=== PATIENT | female | born 1985 | race Caucasian/White ===

== ENCOUNTER → 2022-01-04 16:54 | Outpatient (CLI) | payer OTHER, SELFPAY ==
--- NOTE | 2022-01-04 16:56 | DI.US.S_ITS ---
PROCEDURE: US PELVIC COMPLETE INDICATIONS: Breakthrough bleeding TECHNIQUE: Real-time scanning was performed of the pelvic organs, with image documentation. Additional endovaginal scanning was necessary due to incomplete visualization of the adnexal and endometrial structures by transabdominal scanning. COMPARISON: 04/08/2020 FINDINGS: Uterus: Uterus is anteverted measuring 8.7 x 4.2 x 5.1 cm. Endometrial stripe measures 3.2 mm, with heterogeneity. Small polyp is suspected in the mid region. Ovaries: Right ovary measures 5 x 1.3 x 3 cm. Left ovary measures 4.2 x 1.8 x 2.1 cm. Other: No pathologic free abdominal or pelvic fluid. IMPRESSION: Suspected mid endometrial small polyp. Otherwise normal pelvic ultrasound. We strive to produce accurate, complete, and clear reports of imaging services. To assist us in improving patient care, this report was composed using standard report templates and voice recognition software. Therefore, it may contain abnormal punctuation, insertions and/or omissions. Occasional wrong-word or sound-alike substitutions may occur. Though we review the report and make efforts to correct it, we do recommend that the report be read carefully in proper context to recognize any text inaccuracies. Dictated by: Shaheen Campoverde M.D. on 01/05/2022 at 8:15 Approved by: Shaheen Campoverde M.D. on 01/05/2022 at 8:19
== END ==
PROVIDERS: PCP Acupuncturist; Referring Provider Obstetrics & Gynecology; Visit Provider Obstetrics & Gynecology
DX: N92.1 Excessive and frequent menstruation with irregular cycle (principal)
CPT/HCPCS: 76830; 76856

== ENCOUNTER → 2022-02-22 15:58 | Outpatient (CLI) | payer OTHER, SELFPAY ==
[2022-02-22 18:31] LABS: COVID19 -Nasal RAPID Negative (Negative)
== END ==
PROVIDERS: PCP Acupuncturist; Visit Provider Obstetrics & Gynecology
DX: Z01.812 Encounter for preprocedural laboratory examination (principal); Z20.822 Contact with and (suspected) exposure to COVID-19
CPT/HCPCS: 87635

== ENCOUNTER 2022-02-23 14:35 | Day surgery (SDC) | payer OTHER, SELFPAY ==
[2022-02-13 10:29] VITALS: BMI 21.7
[2022-02-23] VITALS (12 sets, daily range): BP systolic 100–132; BP diastolic 68–84; PULSE 50–70; RESP 7–116; TEMP 36.4–37.1; O2SAT 99–100; BMI 21.7
--- NOTE | 2022-02-23 | PATH_ITS ---
[facility] Accession Number: [id number] . 01 Material submitted: . PART A: endometrium - ENDOMETRIAL POLYP PART B: endometrium - ENDOMETRIAL CURETTINGS . 01 Diagnosis: A. Endometrial Polyp, Curettings: Histologic features consistent with benign endometrial polyp. No atypical hyperplasia and no malignancy. . B. Endometrium, Curettings: Histologic features consistent with early proliferative-type endometrium. No atypical hyperplasia and no malignancy. [facility] 02/27/2022 1144 Local . 01 Electronically signed: . Mayela Mckenzie MD, Pathologist NPI- [id number] . 01 Gross description: . Part A: ENDOMETRIAL POLYP: Received in formalin are minute fragments of mucoid and hemorrhagic material measuring 2.5 x 1.1 x 0.1 cm in aggregate. Submitted in toto in 1 cassette. Part B: ENDOMETRIAL CURETTINGS: Received in formalin are minute fragments of mucoid and hemorrhagic material measuring 2.5 x 0.8 x 0.1 cm in aggregate. Submitted in toto in 1 cassette. /CPE 02/25/2022 0653 Local . 01 Pathologist provided ICD-10: N80.9, N93.9, N84.0 . 01 CPT . 393530, 186196 Performed at: 01 [facility] [address], [place], [place] [id number] MD Fab Rogers MD Phone: [phone]
--- NOTE | 2022-02-23 15:32 | PM.PREOP ---
Pre-operative Note COVID-19 COVID-19 status: Negative Result date/Date tested (Pos, Neg/Pending): 02/22/22 Criteria for continued procedure: Non-surgical alternatives not available or appropriate per current SOC Interval Note History & Physical reviewed/Exam performed by Physician: Yes Changes to H&P: No
--- NOTE | 2022-02-23 16:01 | SUR.OPER ---
Lithotomy on padded OR bed, head on pillow, arms secured on padded arm boards at <90 degrees abduction. Legs secured in padded yellow fins stirrups.
--- NOTE | 2022-02-23 16:38 | PM.GYNOP.1 ---
Operative Date/Time/Diagnoses Date of procedure: 02/23/22 Time of procedure: 15:50 Pre-op diagnosis: Intermenstrual spotting Endometrial polyp Post-op diagnosis: same Procedure & Clinicians Procedure: Procedures Operation Date: 02/23/22 15:30 Actual Procedure Side Surgeon p Hysteroscopy w. polypectomy & D&C Renan Tapia MD Indications: Dayanara is a 36-year-old , LMP 01/29/2022 who has been experiencing intermenstrual spotting/bleeding associated with cramping for the last several months.? Patient has been initiated on cyclic Prometrium in an attempt to help with her PMDD symptoms but persistent intermenstrual spotting prompted performance of a pelvic ultrasound which shows a small mid-cavity endometrial polyp.? After counseling regarding all options, patient has elected to proceed with hysteroscopy and polypectomy with D&C.? Or she presents today for her scheduled surgery. Surgeon: Renan Tapia Anesthesia Type: General Operative Notes Findings: The patient's cervix demonstrates changes consistent with an old obstetrical laceration at 6:00 a.m.. The endometrial cavity contains 3 small polypoid masses with 2 of them arising on the posterolateral surface on the right side the endometrial cavity and the 3rd is near the left cornua. All three were removed during the course of the surgery. Closure Type: not applicable Specimen(s): endometrial curettings and endometrial polyp Estimated blood loss (mL): 25 Blood products transfused: none Procedure in detail: With the patient under satisfactory general anesthesia in the modified dorsal lithotomy position, the perineum vagina and abdomen were prepped and draped in the usual fashion for vaginal surgery. A pre-surgical safety time-out was then taken in accordance with [facility] OR protocols. A bivalve speculum was then inserted in the vagina and the cervix visualized. The anterior lip of the cervix was then grasped with a single-tooth tenaculum and the endocervical canal was dilated to 7 mm with Hegar dilators. The hysteroscope was then introduced into the endometrial cavity and the cavity inspected with the findings as noted previously. Using sorbitol as a distention medium and an operative resectoscope, all 3 polyps were removed using a loop electrode and 30 w setting on cut. The polyp fragments were all submitted as an aggregate specimen. Sharp curettage was then accomplished with moderate amounts of curettings obtained and submitted as a separate pathologic specimen. The tenaculum was then removed from the cervix and Allis clamps were applied to the puncture sites to render sites completely hemostatic. Once complete hemostasis was assured, the speculum was removed from the vagina and the procedure terminated with the patient having tolerated procedure well. She was then transferred to the PACU for a period of observation recovery after having tolerated the procedure well. Complications: none Post-operative Condition: stable Disposition: PACU Plan for aftercare: Routine postoperative care. Patient will renew all pre-surgical medications and follow-up will be scheduled for 2 weeks after her surgery.
[2022-02-23] MEDS: fentaNYL 100 MCG/2 ML INJ IV (16:52)
[2022-02-23] MEDS: ONDANSETRON 4 MG/2 ML INJ IV (16:52)
[2022-02-23] MEDS: OXYCODONE IR 5 MG TABLET 10 MG PO (17:15)
[2022-02-23] MEDS: METOCLOPRAMIDE 10 MG/2 ML INJ IV (17:53)
--- NOTE | 2022-02-23 18:20 | SUR.PHASEII ---
1800: Pt continues to report pain and nausea. After small 100 ml emesis pt report some relief. Several discussions about pain relief methods including Tylenol, ibuprofen, heat, relaxation as narcotics may cause nausea. Pt declined discharge instructions at this time, and agreed that this RN would discuss them with spouse. VSS, IV DC'd intact, pt dressed self without any issues. Transported to ER entrance via W/C with all personal belongings to meet spouse. Discharge instructions reviewed, including narcotic vs nausea concerns, plus to keep CLD while nauseated and constantly sip Gaterade or similar mixed with H20, start tylenol when they get home, and ibuprofen after 10 pm, spouse agreed to this plan. Left pt in stable condition with spouse.
== END 2022-02-23 18:00 | disposition home or self-care (01) ==
PROVIDERS: PCP Acupuncturist; Referring Provider Obstetrics & Gynecology; Visit Provider Obstetrics & Gynecology
PROC: 0UDB8ZZ Extraction of Endometrium, Via Natural or Artificial Opening Endoscopic (ICD-10-PCS; CPT 58558; principal; 2022-02-23 15:30)
DX: N84.0 Polyp of corpus uteri (principal); N92.0 Excessive and frequent menstruation with regular cycle; F41.9 Anxiety disorder, unspecified; B00.9 Herpesviral infection, unspecified
CPT/HCPCS: 58558; J2250; J2405; J2765; J3010

== ENCOUNTER → 2022-04-13 10:43 | Outpatient (CLI) | payer OTHER, SELFPAY ==
[2022-04-13 11:18] LABS: COVID19 -Nasal RAPID Negative (Negative)
== END ==
PROVIDERS: PCP Acupuncturist; Visit Provider Obstetrics & Gynecology
DX: Z01.812 Encounter for preprocedural laboratory examination (principal); Z20.822 Contact with and (suspected) exposure to COVID-19
CPT/HCPCS: 87635

== ENCOUNTER 2022-04-14 06:49 | Day surgery (SDC) | payer OTHER, SELFPAY ==
[2022-04-13 14:57] VITALS: BMI 20.8
[2022-04-14] VITALS (7 sets, daily range): BP systolic 108–120; BP diastolic 66–76; PULSE 58–67; RESP 12–16; TEMP 36.4–36.9; O2SAT 98–100; BMI 20.8
--- NOTE | 2022-04-14 07:23 | PM.GYNHP.1 ---
History of Present Illness History of Present Illness Reason for admission: vaginal bleeding Narrative: Stella Boone is a 36 year old female who is 6+ weeks S/P hysteroscopy with D&C and resection of endometrial polyp who returns today for endometrial ablation with persistent spotting and postcoital bleeding. Options discussed for further treatment of her intermenstrual spotting/postcoital bleeding.? She is not experiencing any pain with these episodes but the bleeding and be of bright red or dark brown.? She is understandably frustrated.? She continues to take continuous Karol and has not missed any pills. The option of discontinuation of control pills for a couple of cycles to permit regrowth of the endometrium followed by re-initiation of OCs for her PMDD with or without use of SSRI for her PMDD while she is off OCs.? Also discussed was expectant management with the hope/expectation that with complete healing of the endometrium her intermenstrual spotting/postcoital bleeding would resolve spontaneously.? Also discussed were the options of endometrial ablation (NovaSure) or total laparoscopic hysterectomy with bilateral salpingectomy.? Patient has already had a sterilization procedure therefore the latter two options would certainly be options for the patient to consider and after consideration of all options, the patient has elected to have an endometrial ablation performed (NovaSure) and presents today for her scheduled procedure. COUNT INCLUDES THE [facility] Medical History (Updated 03/14/22 @ 10:02 by Renan Tapia MD) Acne Anxiety Genital HSV Surgical History (Updated 04/13/22 @ 14:[address] RN) Anesthesia History of hysteroscopy (02/23/22) History of removal of ovarian cyst (~2020) Social History household members: significant other and children Smoking Status: Never smoker alcohol intake: current Meds Home Medications and Allergies Home Medications Medication Instructions Recorded Confirmed Type drospirenone 3 mg-ethinyl 1 tab PO DAILY #84 tabs 01/03/22 04/14/22 Rx estradiol 0.03 mg tablet (Karen (28)) acyclovir 800 mg tablet 800 mg PO BID PRN Cold Sores 04/14/22 04/14/22 History Allergies Allergy/AdvReac Type Severity Reaction Status Date / Time No Known Drug Allergies Allergy Verified 04/14/22 07:11 Review of Systems Review of Systems Narrative: Problem-specific ROS positives included in HPI Exam Const General: cooperative and comfortable Nutritional Appearance: average body habitus Orientation: alert and oriented x3 HENMT Head: normal to inspection, atraumatic and abrasion Ears: hearing grossly normal bilaterally Face and sinus: face symmetric Eyes General: appearance normal, both eyes and all related structures Conjunctivae: conjunctivae normal Sclera: sclerae normal EOM: EOM intact bilaterally Neck Neck: normal visual inspection Resp Effort & Inspection: normal respiratory effort and able to speak in complete sentences Auscultation: clear to auscultation bilaterally Cardio Rate: regular rate Rhythm: regular rhythm Heart Sounds: S1 normal, S2 normal and no murmurs GI Inspection: normal to inspection Palpation: soft, no hepatosplenomegaly and No tender Other: General: deferred External Female Exam: normal external appearance and normal appearance of the urethra Urethra: normal appearance of the urethra Speculum Exam - Vagina: normal appearance of the vagina and abnormal vaginal discharge (Brown, slightly bloody discharge) Speculum Exam - Cervix: cervical os open and other (OB laceration 6:00, dark bloody DC @ os) Bimanual Exam- Vagina & Uterus: normal bimanual exam, uterine size normal, consistency normal, uterine mobility normal, uterine shape normal and non-tender Bimanual Exam- Adnexa, other: normal adnexae, adnexae mobile, no masses, normal and non-tender Pelvic Support: normal OB/External & Speculum: cervical os open Speculum Exam: cervical os open Extrem General: no calf tenderness Psych Appearance: grossly normal Mental Status: mental status grossly normal Speech and Movement: speech and movement normal Mood: congruent mood Affect: normal affect Attitude: cooperative Thought Process: normal Thought Content: normal Judgment: judgment good Assessment & Plan Assessment and plan (1) Intermenstrual spotting: Status: Acute (2) Breakthrough bleeding on control pills: Status: Acute (3) Postcoital bleeding: Status: Acute Plan Patient counseled regarding alternatives, risks, benefits, and potential complications associated with endometrial ablation (NovaSure). With full understanding of the above, a written consent is executed, signed, and witnessed this date. Time Spent With Patient Time with patient: less than 30 minutes Critical Care time: I spent a total of [] minutes of critical care time on this patient's care today; this time is exclusive of procedural time.
[2022-04-14] MEDS: LACTATED RINGERS 1,000 ML 100 ML IV (07:37)
--- NOTE | 2022-04-14 07:48 | SUR.OPER ---
Lithotomy on padded OR bed, head on pillow, arms secured on padded arm boards at <90 degrees abduction. Legs secured in padded yellow fins stirrups.
--- NOTE | 2022-04-14 08:45 | P.OP_ITS ---
Operative Date/Time/Diagnoses Date of procedure: 04/14/22 Time of procedure: 08:10 Pre-op diagnosis: Intermenstrual bleeding Post-coital bleeding Breakthrough bleeding on oral contraceptives Post-op diagnosis: same Procedure & Clinicians Procedure: Procedures Operation Date: 04/14/22 07:45 Actual Procedure Side Surgeon p Hysteroscopy w/ Novasure Endometrial Ablation Renan Tapia MD Indications: Stella Boone is a 36 year old female who is 6+ weeks S/P hysteroscopy with D&C and resection of endometrial polyp who returns today for endometrial ablation with persistent spotting and postcoital bleeding.? Options discussed for further treatment of her intermenstrual spotting/postcoital bleeding.? She is not experiencing any pain with these episodes but the bleeding and be of bright red or dark brown.? She is understandably frustrated.? She continues to take continuous Karol and has not missed any pills.? The option of discontinuation of control pills for a couple of cycles to permit regrowth of the endometrium followed by re-initiation of OCs for her PMDD with or without use of SSRI for her PMDD while she is off OCs.? Also discussed was expectant management with the hope/expectation that with complete healing of the endometrium her intermenstrual spotting/postcoital bleeding would resolve spontaneously.? Also discussed were the options of endometrial ablation (NovaSure) or total laparoscopic hysterectomy with bilateral salpingectomy.? Patient has already had a sterilization procedure therefore the latter two options would certainly be options for the patient to consider and after consideration of all options, the patient has elected to have an endometrial ablation performed (NovaSure) and presents today for her scheduled procedure. Surgeon: Renan Tapia Anesthesia Type: General Operative Notes Findings: Well healed OB lacerations of the cervix. No other abnormalities noted Closure Type: not applicable Specimen(s): none Estimated blood loss (mL): 5 Blood products transfused: none Procedure in detail: With the patient under satisfactory general anesthesia in the modified dorsal lithotomy position, the perineum, vagina, and lower abdomen were prepped and draped in the usual manner for hysteroscopy and endometrial ablation. A pre- surgical safety time-out was then taken in accordance with [facility] [place] protocols. A bivalve speculum was then inserted in the vagina and the cervix grasped with a single-tooth tenaculum. The endocervical canal was then dilated to 6 mm and the uterine cavity depth was ascertained with the NovaSure device. A cavity depth was measured 5.5 cm, the NovaSure was introduced into the endometrial cavity and the width determined to be 3.7 cm. Cavity integrity test conducted and was confirmatory. NovaSure endometrial ablation then performed in the usual manner with a time of 1 minute 7 seconds and total wattage 112. The NovaSure device was then dislodged and removed from the endometrial cavity. The tenaculum was removed from the anterior lip of the cervix and silver nitrate applied to 1 of the puncture sites. Once complete hemostasis was assured, the speculum was removed from the vagina and the procedure terminated. The patient was then awakened and transferred to the PACU for a period of observation and recovery after having tolerated the procedure well. Complications: none Post-operative Condition: stable Disposition: PACU Plan for aftercare: Routine postoperative care follow-up plan for 2 weeks postop.
[2022-04-14] MEDS: OXYCODONE IR 5 MG TABLET PO ×2 (08:49→09:31)
--- NOTE | 2022-04-14 10:07 | SUR.PHASEII ---
Patient ambulated to bathroom and voided without difficulty. Provided discharge instructions written /verbal. Patient stated understanding. Discharged by wheelchair to private vehicle in stable condition.
== END 2022-04-14 09:45 | disposition home or self-care (01) ==
PROVIDERS: PCP Acupuncturist; Referring Provider Obstetrics & Gynecology; Visit Provider Obstetrics & Gynecology
PROC: 0U5B8ZZ Destruction of Endometrium, Via Natural or Artificial Opening Endoscopic (ICD-10-PCS; CPT 58563; principal; 2022-04-14 07:45)
DX: N93.0 Postcoital and contact bleeding (principal); N92.1 Excessive and frequent menstruation with irregular cycle; N92.3 Ovulation bleeding
CPT/HCPCS: 58563; 00940; 82962; J2250; J2704; J3010

== ENCOUNTER → 2024-12-30 16:22 | Outpatient (CLI) | payer OTHER, SELFPAY ==
[2024-12-30 17:23] LABS: Add Manual Diff / Slide Review NO; Hematocrit 36.1 % (36-46); Hemoglobin 12.6 g/dL (12.0-16.0); Lymphocytes Absolute Auto 1500 /uL (1100-4500); Mean Corpuscular HGB Conc 34.9 % (30-36); Mean Corpuscular Hemoglobin 31.2 PG (26-34); Mean Corpuscular Volume 89.3 fL (80-100); Platelet Count 175 X10^3/uL (150-400)
[2024-12-30 18:14] LABS: TSH w/ Reflex to FT4 1.06 uIU/mL (0.47-4.68)
== END ==
PROVIDERS: PCP Acupuncturist; Referring Provider Obstetrics & Gynecology; Visit Provider Obstetrics & Gynecology
DX: R63.5 Abnormal weight gain (principal); R53.83 Other fatigue
CPT/HCPCS: 36415; 84443; 85025